=== PATIENT | male | born 1965 | race Caucasian/White ===

== ENCOUNTER 2024-04-27 09:25 | Emergency (ER) | payer OTHER | END 2024-04-27 10:08 | disposition home or self-care (01) | LOC: NAV ERS 09:25 | DX: H60.93 Unspecified otitis externa, bilateral (principal); H73.891 Other specified disorders of tympanic membrane, right ear; F17.210 Nicotine dependence, cigarettes, uncomplicated | CPT/HCPCS: 99282 ==